=== PATIENT | male | born 1940 | race Caucasian/White ===

== ENCOUNTER 2018-02-13 18:41 | Inpatient (IN) | payer OTHER, MEDICARE ==
[2018-02-13 18:45] VITALS: BP 185/96; PULSE 68; RESP 24; TEMP 99.1; O2SAT 94
--- NOTE | 2018-02-13 19:42 | RADRPT ---
EXAM DATE/TIME: 02/13/2018 19:02 [place] COMPARISON: No previous studies available for comparison. INDICATIONS : Short of breath. MEDICAL HISTORY : None. SURGICAL HISTORY : None. ENCOUNTER: Initial ACUITY: 1 day PAIN SCORE: 0/10 LOCATION: Bilateral chest FINDINGS: PA and lateral views of the chest demonstrate the lungs to be symmetrically aerated without evidence of mass, infiltrate or effusion. The cardiomediastinal contours are unremarkable. Osseous structure s are intact. CONCLUSION: 1. No acute findings. Duane Mendez MD on February 13, 2018 at 19:40 Board Certified Radiologist. This report was verified electronically.
[2018-02-13 19:44] VITALS: BP 143/71; PULSE 77; RESP 28; O2SAT 88; O2SAT 96
[2018-02-13] MEDS ORDERED: GEMF600T PO (19:53)
[2018-02-13] MEDS ORDERED: LISI-519 PO (19:53)
[2018-02-13] MEDS ORDERED: TAMS0.4C4 (19:53)
[2018-02-13] MEDS ORDERED: ASPIRIN 325 MG TAB PO ONE (20:00)
[2018-02-13] MEDS ORDERED: NITROGLYCERIN 2% OINT 1 GM PACKET TOPICAL ONE (20:00)
[2018-02-13 20:21] LABS: AUTOMATED NEUTROPHIL # 3.9 TH/MM3 (1.8-7.7); BASOPHIL % 0.4 % (0.0-2.0); EOSINOPHIL # 0.1 TH/MM3 (0-0.4); EOSINOPHIL % 2.1 % (0.0-4.0); HEMATOCRIT 42.6 % (39.0-51.0); HEMOGLOBIN 14.5 GM/DL (13.0-17.0); LYMPH % 24.8 % (9.0-44.0); LYMPHOCYTE # 1.5 TH/MM3 (1.0-4.8); MEAN CELL VOLUME 94.8 FL (80.0-100.0); MEAN CORPUSCULAR HEMOGLOBIN 32.2 PG (27.0-34.0); MEAN PLATELET VOLUME 7.9 FL (7.0-11.0); MONOCYTE # 0.6 TH/MM3 (0-0.9); NEUT % 62.7 % (16.0-70.0); PLATELET COUNT 258 TH/MM3 (150-450); RED BLOOD COUNT 4.49 MIL/MM3 (4.50-5.90); RED CELL DISTRIBUTION WIDTH 13.8 % (11.6-17.2); WHITE BLOOD COUNT 6.2 TH/MM3 (4.0-11.0)
[2018-02-13 20:36] LABS: INTERNATIONAL NORMALIZED RATIO 1.2 RATIO; PROTHROMBIN TIME - PATIENT 12.2 SEC (9.8-11.6)
--- NOTE | 2018-02-13 20:42 | PD ---
HPI Chief Complaint: Respiratory Symptoms Time Seen by Provider: 19:40 Travel History International Travel<30 days: No Contact w/Intl Traveler<30days: No Traveled to known affect area: No History of Present Illness HPI 77-year-old male that presents to the ED for evaluation of shortness of breath with exertion. Per patient he is never had this before. Per patient his been becoming worse for the past 2 weeks. No pain of pressure. Sitting or laying down does not make a difference in his symptoms. Only happens when he walks for long distance. He went to see his primary care doctor recommended he comes here. He has no history of heart disease or stones. Family history of heart disease. No history of smoking ever. No substance abuse. He does have a history of high triglycerides as well as high blood pressure. Denies any pain or pressure on his chest. Has no taken anything for this. Did not took an aspirin today. Per patient he thought he might be related to his medications and he stopped taking about 2 days ago but the symptoms have not improved. Currently he is symptomatic and only when he ambulates does he get symptoms. Patient denies any history of blood clots or any history of recent travel in the past 3 months. No recent surgeries. PFSH Past Medical History High Cholesterol: Yes Diabetes: No Diminished Hearing: No Hypertension: Yes Tetanus Vaccination: Unknown Influenza Vaccination: No Social History Alcohol Use: Yes (every day a couple of beers) Tobacco Use: No Substance Use: No Allergies-Medications (Allergen,Severity, Reaction): Coded Allergies: atorvastatin (Verified Allergy, Unknown, 02/13/18) Reported Meds & Prescriptions Reported Meds & Active Scripts Active Reported Lisinopril 5 Mg Tab 5 Mg PO DAILY Tamsulosin (Tamsulosin HCl) 0.4 Mg Cap 0.4 Mg HS Gemfibrozil 600 Mg Tab 600 Mg PO BIDAC Take 30 minutes prior to breakfast and dinner. Review of Systems Except as stated in HPI: all other systems reviewed are Neg Physical Exam Narrative GENERAL: SKIN: Warm and dry. HEAD: Atraumatic. Normocephalic. EYES: Pupils equal and round. No scleral icterus. No injection or drainage. ENT: No nasal bleeding or discharge. Mucous membranes pink and moist. Tongue is midline. No uvula deviation. NECK: Trachea midline. No JVD. CARDIOVASCULAR: Regular rate and rhythm. No murmurs, S3, S4. RESPIRATORY: No accessory muscle use. Clear to auscultation. Breath sounds equal bilaterally. GASTROINTESTINAL: Abdomen soft, non-tender, nondistended. Hepatic and splenic margins not palpable. MUSCULOSKELETAL: Extremities without clubbing, cyanosis, or edema. No obvious deformities. Full range of motion of the upper and lower extremities bilaterally. 2+ pulses bilaterally. NEUROLOGICAL: Awake and alert. No obvious cranial nerve deficits. Motor grossly within normal limits. Five out of 5 muscle strength in the arms and legs. Normal speech. PSYCHIATRIC: Appropriate mood and affect; insight and judgment normal. Data Data Last Documented VS Vital Signs Date Time Temp Pulse Resp B/P (MAP) Pulse Ox O2 Delivery O2 Flow Rate FiO2 02/13/18 19:45 22 97 Nasal Cannula 2.50 02/13/18 19:44 77 143/71 (95) 02/13/18 18:45 99.1 Orders Orders Complete Blood Count With Diff (02/13/18 18:48) Comprehensive Metabolic Panel (02/13/18 18:48) B-Type Natriuretic Peptide (02/13/18 18:48) Act Partial Throm Time (Ptt) (02/13/18 18:48) Prothrombin Time / Inr (Pt) (02/13/18 18:48) Magnesium (Mg) (02/13/18 18:48) Ckmb (Isoenzyme) Profile (02/13/18 18:48) Electrocardiogram (02/13/18 18:48) Chest, Pa & Lat (02/13/18 18:48) Aspirin (Aspirin) (02/13/18 20:00) Nitroglycerin 2% Oint (Nitroglycerin 2% (02/13/18 20:00) Troponin I (02/13/18 21:00) CKMB (02/13/18 19:20) CKMB% (02/13/18 19:20) Admit Order (Ed Use Only) (02/13/18 22:04) Labs Laboratory Tests Test 02/13/18 19:20 White Blood Count 6.2 TH/MM3 Red Blood Count 4.49 MIL/MM3 Hemoglobin 14.5 GM/DL Hematocrit 42.6 % Mean Corpuscular Volume 94.8 FL Mean Corpuscular Hemoglobin 32.2 PG Mean Corpuscular Hemoglobin Concent 34.0 % Red Cell Distribution Width 13.8 % Platelet Count 258 TH/MM3 Mean Platelet Volume 7.9 FL Neutrophils (%) (Auto) 62.7 % Lymphocytes (%) (Auto) 24.8 % Monocytes (%) (Auto) 10.0 % Eosinophils (%) (Auto) 2.1 % Basophils (%) (Auto) 0.4 % Neutrophils # (Auto) 3.9 TH/MM3 Lymphocytes # (Auto) 1.5 TH/MM3 Monocytes # (Auto) 0.6 TH/MM3 Eosinophils # (Auto) 0.1 TH/MM3 Basophils # (Auto) 0.0 TH/MM3 CBC Comment DIFF FINAL Differential Comment Prothrombin Time 12.2 SEC Prothromb Time International Ratio 1.2 RATIO Activated Partial Thromboplast Time 27.1 SEC Blood Urea Nitrogen 21 MG/DL Creatinine 1.43 MG/DL Random Glucose 92 MG/DL Total Protein 8.1 GM/DL Albumin 3.6 GM/DL Calcium Level 9.3 MG/DL Magnesium Level 2.2 MG/DL Alkaline Phosphatase 87 U/L Aspartate Amino Transf (AST/SGOT) 37 U/L Alanine Aminotransferase (ALT/SGPT) 28 U/L Total Bilirubin 0.4 MG/DL Sodium Level 141 MEQ/L Potassium Level 4.0 MEQ/L Chloride Level 110 MEQ/L Carbon Dioxide Level 18.3 MEQ/L Anion Gap 13 MEQ/L Estimat Glomerular Filtration Rate 48 ML/MIN Total Creatine Kinase 132 U/L Creatine Kinase MB 3.4 NG/ML Troponin I 0.07 NG/ML B-Type Natriuretic Peptide 78 PG/ML MDM Medical Decision Making Medical Screen Exam Complete: Yes Emergency Medical Condition: Yes Medical Record Reviewed: Yes Interpretation(s) EKG shows sinus rhythm with no sign of acute ischemia read by me and attending. Patient does appear to have some ST depressions in V3 CBC & BMP Diagram 02/13/18 19:20 Total Protein 8.1, Albumin 3.6, Calcium Level 9.3, Magnesium Level 2.2, Alkaline Phosphatase 87, Aspartate Amino Transf (AST/SGOT) 37, Alanine Aminotransferase (ALT/SGPT) 28, Total Bilirubin 0.4 Last Impressions Chest X-Ray 02/13/18 0733 Signed Impressions: Service Date/Time: Tuesday, February 13, 2018 19:02 - CONCLUSION: 1. No acute findings. Duane Mendez MD troponin of 0.07 CKMB negative Differential Diagnosis Angina versus atypical angina versus shortness of breath with exertion versus CHF versus n STEMI Narrative Course 77-year-old male that presents to the ED for evaluation of shortness of breath with exertion. Patient was properly examined and was found to have signs and symptoms very concerning for anginal equivalent. Patient does not have any history of this in the past. He does have risk factors including high cholesterol and high triglycerides as well as age, gender as well as high blood pressure. At this time EKG did not show any sign of ST elevation or ischemia. Recommendation at this time is for cardiac workup and likely admission to the chest pain center if everything come back negative. Patient agrees. Patient was given nitroglycerin paste and given aspirin. Patient and family agree with plan. Labs and imaging showed positive troponin. Likely NSTEMI, symptoms started 2 weeks ago, question whether this is trending down or up. Case discussed with Dr Rivera who recommends admission for further eval and treatment. Dr Sam agrees to admission and will start him on Heparin. Diagnosis Primary Impression: NSTEMI (non-ST elevated myocardial infarction) Admitting Information Admitting Physician Requests: Admit Renan Harman Feb 13, 2018 20:42
--- NOTE | 2018-02-13 20:47 | PD ---
Physical Exam Narrative General: The patient is a well-developed well-nourished male in no acute distress. Head and Neck exam: Head is normocephalic atraumatic. Eyes: EOMI, pupils are equal round and reactive to light. Nose: Midline septum with pink mucous membranes Mouth: Dentition unremarkable. Moist mucus membranes. Posterior oropharynx is not erythematous. No tonsillar hypertrophy. Uvula midline. Airway patent. Neck: No palpable lymphadenopathy. No nuchal rigidity. No thyromegaly. Cardiovascular: Regular rate and rhythm without murmurs, gallops, or rubs. No pulse deficit to the extremities on simultaneous auscultation and palpation of his radial artery. Lungs: Clear to auscultation bilaterally. No wheezes, rhonchi, or rales. Abdomen: Soft, without tenderness to palpation in all 4 quadrants of the abdomen. No guarding, rebound, or rigidity. Normal bowel sounds are audible. No tenderness on palpation of McBurney's point. Extremities: No clubbing or cyanosis. The patient has trace pedal edema bilateral lower extremities. 2+ pulses in all 4 extremities. The patient denies any calf tenderness on palpation. Back: No spinous process tenderness to palpation. No costovertebral angle tenderness to palpation. Neurologic Exam: Grossly nonfocal. Skin Exam: No rash noted. Intact skin that is warm and dry. Data Data Last Documented VS Vital Signs Date Time Temp Pulse Resp B/P (MAP) Pulse Ox O2 Delivery O2 Flow Rate FiO2 02/13/18 19:45 22 97 Nasal Cannula 2.50 02/13/18 19:44 77 143/71 (95) 02/13/18 18:45 99.1 Orders Orders Complete Blood Count With Diff (02/13/18 18:48) Comprehensive Metabolic Panel (02/13/18 18:48) B-Type Natriuretic Peptide (02/13/18 18:48) Act Partial Throm Time (Ptt) (02/13/18 18:48) Prothrombin Time / Inr (Pt) (02/13/18 18:48) Magnesium (Mg) (02/13/18 18:48) Ckmb (Isoenzyme) Profile (02/13/18 18:48) Electrocardiogram (02/13/18 18:48) Chest, Pa & Lat (02/13/18 18:48) Aspirin (Aspirin) (02/13/18 20:00) Nitroglycerin 2% Oint (Nitroglycerin 2% (02/13/18 20:00) Troponin I (02/13/18 21:00) CKMB (02/13/18 19:20) CKMB% (02/13/18 19:20) Labs Laboratory Tests Test 02/13/18 19:20 White Blood Count 6.2 TH/MM3 Red Blood Count 4.49 MIL/MM3 Hemoglobin 14.5 GM/DL Hematocrit 42.6 % Mean Corpuscular Volume 94.8 FL Mean Corpuscular Hemoglobin 32.2 PG Mean Corpuscular Hemoglobin Concent 34.0 % Red Cell Distribution Width 13.8 % Platelet Count 258 TH/MM3 Mean Platelet Volume 7.9 FL Neutrophils (%) (Auto) 62.7 % Lymphocytes (%) (Auto) 24.8 % Monocytes (%) (Auto) 10.0 % Eosinophils (%) (Auto) 2.1 % Basophils (%) (Auto) 0.4 % Neutrophils # (Auto) 3.9 TH/MM3 Lymphocytes # (Auto) 1.5 TH/MM3 Monocytes # (Auto) 0.6 TH/MM3 Eosinophils # (Auto) 0.1 TH/MM3 Basophils # (Auto) 0.0 TH/MM3 CBC Comment DIFF FINAL Differential Comment Prothrombin Time 12.2 SEC Prothromb Time International Ratio 1.2 RATIO Activated Partial Thromboplast Time 27.1 SEC Blood Urea Nitrogen 21 MG/DL Creatinine 1.43 MG/DL Random Glucose 92 MG/DL Total Protein 8.1 GM/DL Albumin 3.6 GM/DL Calcium Level 9.3 MG/DL Magnesium Level 2.2 MG/DL Alkaline Phosphatase 87 U/L Aspartate Amino Transf (AST/SGOT) 37 U/L Alanine Aminotransferase (ALT/SGPT) 28 U/L Total Bilirubin 0.4 MG/DL Sodium Level 141 MEQ/L Potassium Level 4.0 MEQ/L Chloride Level 110 MEQ/L Carbon Dioxide Level 18.3 MEQ/L Anion Gap 13 MEQ/L Estimat Glomerular Filtration Rate 48 ML/MIN Total Creatine Kinase 132 U/L Creatine Kinase MB 3.4 NG/ML Troponin I 0.07 NG/ML B-Type Natriuretic Peptide 78 PG/ML [facility] Medical Record Reviewed: Yes Supervised Visit with HILL: Yes Narrative Course I, Dr. Rivera, have reviewed the advance practice practitioner's documentation and am in agreement, met with the patient face to face, made the diagnosis, and the medical decision making was done by me. The patient was initially evaluated by Herrera, physician housekeeping assistant. Please see their complete history and physical. *My assessment and Findings: The patient presents with a history of 2 weeks of dyspnea on exertion that is gradually been worsening with time and became much worse 2 days ago. He denies having any chest pain or chest pressure associated with this. He denies having any diaphoresis, nausea, or recent cough. He reports that he has had some nasal congestion which he attributes to seasonal allergies. He denies having any prior history of coronary artery disease. He cannot recall ever having a stress test done previously. He does however have a history of hypertension and hyperlipidemia. He denies any prior history of smoking. He denies any prior history of DVT or PE. He denies any known family history of blood clots. The patient does report having some ankle edema recently noted. During the course of the patient's emergency department visit, the patient's history, examination, and differential diagnosis were reviewed with the patient. The patient was placed on a clinical research monitor with oximetry and frequent blood pressure monitoring. The patient had IV access obtained and blood work sent for analysis. The patient had an EKG done on arrival that shows a sinus rhythm heart rate is 75, QRS duration 140 ms which is prolonged, QTC 445 ms with what appears to be a right bundle branch block, T waves inverted in V1, V2 , V3, lead III, aVF. No acute ST segment elevation. The patient was initially provided aspirin, nitroglycerin 1 inch to the chest wall as this is suspected to be an anginal equivalent. The patient's laboratory studies were reviewed and remarkable for a white count of 6.2, hemoglobin 14.5, platelets 258 with monocytes 10, CMP is remarkable for chloride of 110, CO2 18.3, BUN 21, creatinine 1.43, cardiac enzymes within normal limits, BNP is 78, troponin I is elevated at 0.07. PT 12.2, PTT 27.1 Radiology studies were reviewed and remarkable for a chest x-ray that shows no acute abnormality. The patient's results were discussed with the patient, including the plan of care. I explained that further testing and/ or monitoring is indicated based on the patient's history, examination, and/ or laboratory findings. Therefore, I recommended admission for additional evaluation. The patient expressed understanding and was agreeable with this plan. The patient was admitted to the hospital in guarded condition and sent to a bed under the care of the [facility] service. Diagnosis Primary Impression: Dyspnea on exertion Admitting Information Admitting Physician Requests: Observation Margaret Rivera MD Feb 13, 2018 20:46
[2018-02-13 20:59] LABS: ALBUMIN 3.6 GM/DL (3.4-5.0); AST (GOT) 37 U/L (15-37); BICARBONATE 18.3 MEQ/L (21.0-32.0); BLOOD UREA NITROGEN 21 MG/DL (7-18); CALCIUM 9.3 MG/DL (8.5-10.1); CHLORIDE 110 MEQ/L (98-107); CREATININE 1.43 MG/DL (0.60-1.30); GLOMERULAR FILTRATION RATE 48 ML/MIN (>89); GLUCOSE,RANDOM 92 MG/DL (74-106); MAGNESIUM 2.2 MG/DL (1.5-2.5); SODIUM (NA) 141 MEQ/L (136-145)
[2018-02-13 21:02] LABS: ALKALINE PHOSPHATASE 87 U/L (45-117); ALT (GPT) 28 U/L (12-78); TOTAL BILIRUBIN ADULT 0.4 MG/DL (0.2-1.0); TOTAL PROTEIN 8.1 GM/DL (6.4-8.2)
[2018-02-13] MEDS ORDERED: HEPARIN SODIUM - IV 10,000 UNITS/10 ML VIAL IV PUSH ONE (22:15)
[2018-02-13] MEDS ORDERED: SODIUM CHLORIDE 0.9% FLUSH 10 ML FLUSH IV FLUSH PRN (22:30)
[2018-02-13] MEDS ORDERED: NALOXONE HCL 0.4 MG/ML AMP IV PUSH PRN (22:30)
[2018-02-13] MEDS ORDERED: NITROGLYCERIN 0.4 MG SL 25 TABS/BTL SL PRN (22:30)
[2018-02-13 23:07] VITALS: BP 128/59; PULSE 71; RESP 17; O2SAT 96
[2018-02-13] MEDS: HEPARIN-D5W 25,000 U/250 ML 250 ML IV PRN (23:12)
[2018-02-14 02:55] LABS: TROPONIN I 0.07 NG/ML (0.02-0.05)
[2018-02-14] MEDS ORDERED: HEPARIN SODIUM - IV 10,000 UNITS/10 ML VIAL IV PUSH PRN ×2 (04:15)
--- NOTE | 2018-02-14 04:42 | HHI.HP ---
HPI [facility] Physician Chuck Watts MD Admission Diagnosis NSTEMI, positive troponin Diagnoses: (1) NSTEMI (non-ST elevated myocardial infarction) (2) Dyspnea on exertion Chief Complaint: SOB with exertyion Travel History International Travel<30 Days: No Contact w/Intl Traveler <30 Da: No Traveled to Known Affected Are: No History of Present Illness Mr. Whitaker is a 77-year-old male with a past medical history of hypertension and hypertriglyceridemia as well as a family history of heart disease who presented to the emergency room complaining of 2 weeks of progressively worsening shortness of breath with exertion. The patient was found to have troponin elevation in the emergency room and symptoms were thought to be a possible anginal equivalent. The patient has been admitted to the hospitalist service with cardiology consultation. The patient is seen in the ER overflow area. He reports having no stamina, fatigue, and shortness of breath that has worsened over the past 2 weeks. He says over the past 3 days, the shortness of breath has gotten so bad that he is unable to ambulate further than 20 feet without becoming short of breath. He states that he has not had any accompanying chest pain, palpitations, nausea, or diaphoresis. He denies any recent cough or fevers. He has never smoked. Review of Systems Except as stated in HPI: all other systems reviewed are Neg Past Family Social History Past Medical History Hypertriglyceridemia Hypertension Denies diabetes mellitus, heart disease, congestive heart failure, irregular heart rhythm, DVT, CVA, PE, seizures, cancer, thyroid problems, liver problems, or kidney problems Past Surgical History Had surgery on 1 of his fingers but other than that has had no prior surgical history . Reported Medications Reported Meds & Active Scripts Active Reported Lisinopril 5 Mg Tab 5 Mg PO DAILY Tamsulosin (Tamsulosin HCl) 0.4 Mg Cap 0.4 Mg HS Gemfibrozil 600 Mg Tab 600 Mg PO BIDAC Take 30 minutes prior to breakfast and dinner. . Allergies: Coded Allergies: atorvastatin (Verified Allergy, Unknown, 02/13/18) Family History Father from [place] at age 8383 years old . Social History Tobacco: Denies smoking ever Alcohol: Drinks 2-4 beers about 3-4 days per week Illicit Drugs: Denies . Physical Exam Vital Signs Vital Signs Date Time Temp Pulse Resp B/P (MAP) Pulse Ox O2 Delivery O2 Flow Rate FiO2 02/13/18 23:07 71 17 128/59 (82) 96 Nasal Cannula 3.00 02/13/18 19:45 22 97 Nasal Cannula 2.50 02/13/18 19:44 88 Room Air 02/13/18 19:44 77 28 143/71 (95) 96 Nasal Cannula 3.00 02/13/18 18:45 99.1 68 24 185/96 (125) 94 Physical Exam GENERAL: This is a well-nourished, well-developed patient, in no apparent distress. SKIN: No rashes. Cool and dry. HEAD: Atraumatic. Normocephalic. EYES: No scleral icterus. No injection or drainage. ENT: Nose without bleeding, purulent drainage. NECK: Trachea midline. No JVD or lymphadenopathy. CARDIOVASCULAR: Regular rate and rhythm without murmurs, gallops, or rubs. 1+ ankle edema bilaterally. RESPIRATORY: Clear to auscultation. Breath sounds equal bilaterally. No wheezes , rales, or rhonchi. GASTROINTESTINAL: Abdomen soft, non-tender, nondistended. No guarding. MUSCULOSKELETAL: Extremities without clubbing, cyanosis, or edema. No calf tenderness. NEUROLOGICAL: Awake and alert. Motor and sensory grossly within normal limits. Normal speech. . Laboratory Laboratory Tests Test 02/13/18 19:20 02/14/18 02:05 White Blood Count 6.2 Red Blood Count 4.49 Hemoglobin 14.5 Hematocrit 42.6 Mean Corpuscular Volume 94.8 Mean Corpuscular Hemoglobin 32.2 Mean Corpuscular Hemoglobin Concent 34.0 Red Cell Distribution Width 13.8 Platelet Count 258 Mean Platelet Volume 7.9 Neutrophils (%) (Auto) 62.7 Lymphocytes (%) (Auto) 24.8 Monocytes (%) (Auto) 10.0 Eosinophils (%) (Auto) 2.1 Basophils (%) (Auto) 0.4 Neutrophils # (Auto) 3.9 Lymphocytes # (Auto) 1.5 Monocytes # (Auto) 0.6 Eosinophils # (Auto) 0.1 Basophils # (Auto) 0.0 CBC Comment DIFF FINAL Differential Comment Prothrombin Time 12.2 Prothromb Time International Ratio 1.2 Activated Partial Thromboplast Time 27.1 Blood Urea Nitrogen 21 Creatinine 1.43 Random Glucose 92 Total Protein 8.1 Albumin 3.6 Calcium Level 9.3 Magnesium Level 2.2 Alkaline Phosphatase 87 Aspartate Amino Transf (AST/SGOT) 37 Alanine Aminotransferase (ALT/SGPT) 28 Total Bilirubin 0.4 Sodium Level 141 Potassium Level 4.0 Chloride Level 110 Carbon Dioxide Level 18.3 Anion Gap 13 Estimat Glomerular Filtration Rate 48 Total Creatine Kinase 132 122 Creatine Kinase MB 3.4 Troponin I 0.07 0.07 B-Type Natriuretic Peptide 78 Result Diagram: 02/13/18191902/13/181919 Imaging Last Impressions Chest X-Ray 02/13/181847 Signed Impressions: Service Date/Time: Tuesday, February 13, 2018 19:02 - CONCLUSION: 1. No acute findings. MD Pedro West VTE Risk Assessment Caprini VTE Risk Assessment: Mod/High Risk (score >= 2) Caprini Risk Assessment Model Point Value = 1 Point Value = 2 Point Value = 3 Point Value = 5 Age 41-60 Minor surgery BMI > 25 kg/m2 Swollen legs Varicose veins or History of unexplained or recurrent spontaneous Oral contraceptives or hormone replacement Sepsis (< 1 month) Serious lung disease, including pneumonia (< 1 month) Abnormal pulmonary function Acute myocardial infarction Congestive heart failure (< 1 month) History of inflammatory bowel disease Medical patient at bed rest Age 61-74 Arthroscopic surgery Major open surgery (> 45 min) Laparoscopic surgery (> 45 min) Malignancy Confined to bed (> 72 hours) Immobilizing plaster cast Central venous access Age >= 75 History of VTE Family history of VTE Factor V Leiden Prothrombin [id number] Lupus anticoagulant Anticardiolipin antibodies Elevated serum homocysteine Heparin-induced thrombocytopenia Other congenital or acquired thrombophilia Stroke (< 1 month) Elective arthroplasty Hip, pelvis, or leg fracture Acute spinal cord injury (< 1 month) Prophylaxis Regimen Total Risk Factor Score Risk Level Prophylaxis Regimen 0-1 Low Early ambulation 2 Moderate Order ONE of the following: *Sequential Compression Device (SCD) *Heparin 5000 units SQ BID 3-4 Higher Order ONE of the following medications: *Heparin 5000 units SQ TID *Enoxaparin/Lovenox 40 mg SQ daily (WT < 150 kg, CrCl > 30 mL/min) *Enoxaparin/Lovenox 30 mg SQ daily (WT < 150 kg, CrCl > 10-29 mL/min) *Enoxaparin/Lovenox 30 mg SQ BID (WT < 150 kg, CrCl > 30 mL/min) AND/OR *Sequential Compression Device (SCD) 5 or more Highest Order ONE of the following medications: *Heparin 5000 units SQ TID (Preferred with Epidurals) *Enoxaparin/Lovenox 40 mg SQ daily (WT < 150 kg, CrCl > 30 mL/min) *Enoxaparin/Lovenox 30 mg SQ daily (WT < 150 kg, CrCl > 10-29 mL/min) *Enoxaparin/Lovenox 30 mg SQ BID (WT < 150 kg, CrCl > 30 mL/min) AND *Sequential Compression Device (SCD) Assessment and Plan Assessment and Plan Mr. Whitaker is a 77-year-old male with a past medical history of hypertension and hypertriglyceridemia as well as a family history of heart disease who presented to the emergency room complaining of 2 weeks of progressively worsening shortness of breath with exertion. The patient was found to have troponin elevation in the emergency room and symptoms were thought to be a possible anginal equivalent. The patient has been admitted to the hospitalist service with cardiology consultation. NSTEMI SOB with exertion -suspect anginal equivalent -Chest x-ray with no acute findings -Continue to monitor and trend serial EKGs and troponin I measurements -EKGs with nonspecific ST changes in V3 and minimal depression in V4 -Cardiology consultation -Nitroglycerin 0.4 mg sublingual every 5 minutes as needed for chest pain -Heparin drip for anticoagulation -Continuous cardiac telemetry to monitor for arrhythmia -NPO for possible heart catheterization -Aspirin 325 mg a day p.o. -will obtain d-dimer - concern for contrast in patient with RHEA and possible need for cardiac cath Acute kidney injury -likely secondary to dehydration -BUN 21, creatinine 1.43, estimated GFR 48 -IV fluid hydration with lactated Ringer's at 84 cc/h -Avoid nephrotoxins as much as possible -Recheck renal functions and monitor trends -Consider renal ultrasound if renal function does not improve Hypertension Hypertriglyceridemia -Continue home meds and monitor blood pressure readings and adjust treatments as indicated Patient verbalizing anxiety and requesting medication to manage -Alprazolam 0.125 mg p.o. 1 dose DVT prophylaxis - on heparin drip Discussed Condition With Patient, RN, and Dr. Pat . Physician Certification 2 Midnight Certification Type: Admission for Inpatient Services Order for Inpatient Services The services are ordered in accordance with Medicare regulations or non- Medicare payer requirements, as applicable. In the case of services not specified as inpatient-only, they are appropriately provided as inpatient services in accordance with the 2-midnight benchmark. Estimated LOS (days): 3 days is the estimated time the patient will need to remain in the hospital, assuming treatment plan goals are met and no additional complications. Post-Hospital Plan: Home Radha Diana Feb 14, 2018 04:42
[2018-02-14] MEDS ORDERED: ALPRAZolam 0.25 MG TAB PO ONE (05:00)
[2018-02-14] MEDS: LACTATED RINGER'S 1000 ML INJ 1,000 ML IV SCH ×2 (05:45→17:40)
--- NOTE | 2018-02-14 08:44 | MB ---
cc: Nicola Wolfe MD DATE: 02/14/2018 INDICATION: Shortness of breath. HISTORY OF PRESENT ILLNESS: This is a 77-year-old gentleman with a history of hypertension and hyperglycemic who presents with progressive shortness of breath over the last 2 weeks, but more progressive within the last 3 days. Denies any chest pain. States that symptoms have gotten so bad that he is only able to ambulate about 20 feet before he becomes very symptomatic. No recent fever or productive cough. Troponin was in the intermediate range. Electrocardiogram shows incomplete right bundle branch block with some abnormal ST-T wave changes in the anterolateral precordial leads. PAST MEDICAL HISTORY: Hypertriglyceridemia, hypertension. PAST SURGICAL HISTORY: Finger surgery reported. MEDICATIONS: Lisinopril, Tamsulosin, gemfibrozil. ALLERGIES: ATORVASTATIN. FAMILY HISTORY: Denies any family history of early coronary disease or sudden cardiac . SOCIAL HISTORY: Denies tobacco use. Drinks about 2-4 beers about 3-4 times a week. Denies any drug use. REVIEW OF SYSTEMS: A 12-point review of systems was performed, negative unless otherwise as noted in the history of present illness. PHYSICAL EXAM: VITAL SIGNS: Temperature 99, pulse 71, blood pressure 128/59 mmHg. GENERAL: Alert and oriented x 3 in no acute distress. HEENT: Exam shows pupils are reactive to light and accommodation. Extraocular movements are intact. NECK: No elevation or jugular venous distention. No thyromegaly. No lymphadenopathy, no carotid bruits. LUNGS: Clear to auscultation bilaterally with some diffuse rhonchi. CARDIOVASCULAR: Regular rate and rhythm without murmurs, rubs or gallops. ABDOMEN: Nontender, nondistended. Equal bowel sounds. No hepatosplenomegaly. EXTREMITIES: Show no clubbing, cyanosis or edema. Good peripheral pulses. NEUROLOGIC: Cranial nerves intact. Motor and sensory grossly intact. LABORATORY DATA: Sodium 141, potassium 4.0, BUN is 21, creatinine is 1.43. Troponin 0.07 and 0.07. INR is 1.2. WBC 6.2, hemoglobin 14.5, platelet count is 258. Electrocardiogram as mentioned earlier, incomplete right bundle branch block with mild ST depression and T-wave inversions in the early precordial leads. ASSESSMENT AND PLAN: 1. Shortness of breath. 2. Abnormal electrocardiogram, hypertension, and hypertriglyceridemia. PLAN: The patient actually does not have chest pain symptoms. Troponin is in the intermediate range. His most pronounced symptom is shortness of breath. No recent long travel. No sedentary lifestyle. His respiratory exam does have some rhonchi, but chest x-ray did not show any obvious signs of pneumonia. I would like to proceed first with a pulmonary embolism workup just to make sure that is not his underlying etiology. With his creatinine mildly elevated, we will pursue a ventilation perfusion scan first. We can gently hydrate him. If that comes back negative, we may have to then consider whether we would do a stress test, which would require a 24-hour delay or just proceed directly with cardiac catheterization. We will get a 2-D echocardiogram. Nicola Wolfe MD INGE/DL , 08:22 AM , 08:43 AM
[2018-02-14] MEDS: SODIUM CHLORIDE 0.9% FLUSH 10 ML FLUSH IV FLUSH SCH ×2 (09:00→22:41)
[2018-02-14] MEDS: ASPIRIN EC 325 MG TABEC PO SCH (09:38)
[2018-02-14] MEDS: GEMFIBROZIL 600 MG TAB PO SCH ×2 (09:38→18:00)
[2018-02-14] MEDS: LISINOPRIL 5 MG TAB PO SCH (09:39)
--- NOTE | 2018-02-14 12:10 | RADRPT ---
EXAM DATE/TIME: 02/14/2018 11:21 [facility] COMPARISON: CHEST PA & LAT, February 13, 2018, 19:02. INDICATIONS : Dyspnea x 2 weeks. DOSE: 1.2 mCi Tc99m DTPA 8.8 mCi Tc99m MAA MEDICAL HISTORY : Hypertension. SURGICAL HISTORY : Finger. ENCOUNTER: [facility] ACUITY: 2 weeks PAIN SCALE: 0/10 LOCATION: Bilateral chest TECHNIQUE: Following five minutes of tidal breathing of DTPA aerosol, planar images of the lungs were performed in eight projections. The patient was then injected with MAA, and eight-view perfusion scan was perf ormed. FINDINGS: There is a homogeneous pattern of aerosol delivery to the periphery of both lungs. No focal ventilat ory defects are seen. The perfusion lung scan demonstrates a single well-defined segmental defect involving the left upper lung. This is a mismatched defect compared to the ventilation scan. The rest of the perfusion scan is unremarkable. The recent chest x-ray is unremarkable with no focal infiltrates in the right or left upper lung campbell. CONCLUSION: There is a single well-defined segmental mismatched defect involving the left upper lung. This would be high probability for PE. Israel Reid MD on February 14, 2018 at 12:06 Board Certified Radiologist. This report was verified electronically.
[2018-02-14 13:13] VITALS: BP 168/82; PULSE 62; RESP 19; TEMP 97.9; O2SAT 95
--- NOTE | 2018-02-14 13:28 | PD.CARD.PN ---
Objective Medications Current Medications Medications (Trade) Dose Ordered Sig/Yoan Route Start Time Stop Time Status Last Admin (Heparin Inj) 5,000 units UNSCH PRN IV PUSH 02/14/18 04:15 (Heparin Inj) 2,500 units UNSCH PRN IV PUSH 02/14/18 04:15 Heparin Sodium/ Dextrose 250 ml @ 10 mls/hr TITRATE PRN IV 02/13/18 22:15 02/13/18 23:12 (NS Flush) 2 ml UNSCH PRN IV FLUSH 02/13/18 22:30 (NS Flush) 2 ml BID IV FLUSH 02/14/18 09:00 (Narcan Inj) 0.4 mg UNSCH PRN IV PUSH 02/13/18 22:30 (Ecotrin Ec) 325 mg DAILY PO 02/14/18 09:00 02/14/18 09:38 (Nitrostat Sl) 0.4 mg Q5M PRN SL 02/13/18 22:30 (Lopid) 600 mg BIDAC PO 02/14/18 07:00 02/14/18 09:38 (Prinivil) 5 mg DAILY PO 02/14/18 09:00 02/14/18 09:39 (Flomax) 0.4 mg HS PO 02/14/18 21:00 Lactated Ringer's 1,000 ml @ 84 mls/hr [id number] IV 02/14/18 05:45 Vital Signs / I&O Vital Signs Date Time Temp Pulse Resp B/P (MAP) Pulse Ox O2 Delivery O2 Flow Rate FiO2 02/14/18 13:13 97.9 62 19 168/82 (110) 95 02/13/18 23:07 71 17 128/59 (82) 96 Nasal Cannula 3.00 02/13/18 19:45 22 97 Nasal Cannula 2.50 02/13/18 19:44 88 Room Air 02/13/18 19:44 77 28 143/71 (95) 96 Nasal Cannula 3.00 02/13/18 18:45 99.1 68 24 185/96 (125) 94 I/O 02/13/18 02/13/18 02/13/18 02/14/18 02/14/18 02/14/18 07:00 15:00 23:00 07:00 15:00 23:00 Output Total 400 ml Balance -400 ml Output Urine Total 400 ml Laboratory Laboratory Tests Test 02/13/18 19:20 02/14/18 02:05 White Blood Count 6.2 TH/MM3 Red Blood Count 4.49 MIL/MM3 Hemoglobin 14.5 GM/DL Hematocrit 42.6 % Mean Corpuscular Volume 94.8 FL Mean Corpuscular Hemoglobin 32.2 PG Mean Corpuscular Hemoglobin Concent 34.0 % Red Cell Distribution Width 13.8 % Platelet Count 258 TH/MM3 Mean Platelet Volume 7.9 FL Neutrophils (%) (Auto) 62.7 % Lymphocytes (%) (Auto) 24.8 % Monocytes (%) (Auto) 10.0 % Eosinophils (%) (Auto) 2.1 % Basophils (%) (Auto) 0.4 % Neutrophils # (Auto) 3.9 TH/MM3 Lymphocytes # (Auto) 1.5 TH/MM3 Monocytes # (Auto) 0.6 TH/MM3 Eosinophils # (Auto) 0.1 TH/MM3 Basophils # (Auto) 0.0 TH/MM3 CBC Comment DIFF FINAL Differential Comment Prothrombin Time 12.2 SEC Prothromb Time International Ratio 1.2 RATIO Activated Partial Thromboplast Time 27.1 SEC Blood Urea Nitrogen 21 MG/DL Creatinine 1.43 MG/DL Random Glucose 92 MG/DL Total Protein 8.1 GM/DL Albumin 3.6 GM/DL Calcium Level 9.3 MG/DL Magnesium Level 2.2 MG/DL Alkaline Phosphatase 87 U/L Aspartate Amino Transf (AST/SGOT) 37 U/L Alanine Aminotransferase (ALT/SGPT) 28 U/L Total Bilirubin 0.4 MG/DL Sodium Level 141 MEQ/L Potassium Level 4.0 MEQ/L Chloride Level 110 MEQ/L Carbon Dioxide Level 18.3 MEQ/L Anion Gap 13 MEQ/L Estimat Glomerular Filtration Rate 48 ML/MIN Total Creatine Kinase 132 U/L 122 U/L Creatine Kinase MB 3.4 NG/ML Troponin I 0.07 NG/ML 0.07 NG/ML B-Type Natriuretic Peptide 78 PG/ML Imaging Last 24 hours Impressions Lung Scan-VQ Nuclear Medicine 02/14/18 0000 Signed Impressions: Service Date/Time: Wednesday, February 14, 2018 11:21 - CONCLUSION: There is a single well-defined segmental mismatched defect involving the left upper lung. This would be high probability for PE. Israel Reid MD Chest X-Ray 02/13/18 1848 Signed Impressions: Service Date/Time: Tuesday, February 13, 2018 19:02 - CONCLUSION: 1. No acute findings. Duane Mendez MD Assessment and Plan Assessment and Plan -------- V/Q high probability for pulmonary embolism fu 2d echo anticoagulation no indication at this time for t-PA no need for cardiac workup needs hypercoag evaluation and appropriate cancer screening BLE venous US r/o extensive clot, if + extensive clot, call me and I can place IVC filter if needed. otherwise, will sign off call with further questions Nicola Wolfe MD Feb 14, 2018 13:28
[2018-02-14 13:53] LABS: AUTOMATED NEUTROPHIL # 2.8 TH/MM3 (1.8-7.7); BASOPHIL % 0.6 % (0.0-2.0); EOSINOPHIL # 0.1 TH/MM3 (0-0.4); EOSINOPHIL % 2.9 % (0.0-4.0); HEMATOCRIT 38.3 % (39.0-51.0); HEMOGLOBIN 13.1 GM/DL (13.0-17.0); LYMPH % 25.7 % (9.0-44.0); LYMPHOCYTE # 1.2 TH/MM3 (1.0-4.8); MEAN CELL VOLUME 95.6 FL (80.0-100.0); MEAN CORPUSCULAR HEMOGLOBIN 32.8 PG (27.0-34.0); MEAN CORPUSCULAR HGB CONC 34.3 % (32.0-36.0); MEAN PLATELET VOLUME 8.2 FL (7.0-11.0); MONO % 11.3 % (0.0-8.0); MONOCYTE # 0.5 TH/MM3 (0-0.9); NEUT % 59.5 % (16.0-70.0); PLATELET COUNT 233 TH/MM3 (150-450); RED CELL DISTRIBUTION WIDTH 13.8 % (11.6-17.2); WHITE BLOOD COUNT 4.6 TH/MM3 (4.0-11.0)
[2018-02-14 14:14] LABS: BICARBONATE 21.2 MEQ/L (21.0-32.0); CREATININE 1.33 MG/DL (0.60-1.30)
[2018-02-14 14:17] LABS: D-DIMER 6.37 MG/L FEU (0.00-0.50); TROPONIN I 0.05 NG/ML (0.02-0.05)
--- NOTE | 2018-02-14 14:49 | HHI.PR ---
Subjective Remarks Denies chest pain/sob sob only on exertion afebrile denies cough Objective Vitals Vital Signs Date Time Temp Pulse Resp B/P (MAP) Pulse Ox O2 Delivery O2 Flow Rate FiO2 02/14/18 13:13 97.9 62 19 168/82 (110) 95 02/13/18 23:07 71 17 128/59 (82) 96 Nasal Cannula 3.00 02/13/18 19:45 22 97 Nasal Cannula 2.50 02/13/18 19:44 88 Room Air 02/13/18 19:44 77 28 143/71 (95) 96 Nasal Cannula 3.00 02/13/18 18:45 99.1 68 24 185/96 (125) 94 I/O 02/13/18 02/13/18 02/13/18 02/14/18 02/14/18 02/14/18 07:00 15:00 23:00 07:00 15:00 23:00 Output Total 400 ml Balance -400 ml Output Urine Total 400 ml Result Diagram: 02/14/18 1328 02/14/18 1328 Imaging Last Impressions Lung Scan-VQ Nuclear Medicine 02/14/18 0000 Signed Impressions: Service Date/Time: Wednesday, February 14, 2018 11:21 - CONCLUSION: There is a single well-defined segmental mismatched defect involving the left upper lung. This would be high probability for PE. Israel Reid MD Chest X-Ray 02/13/18 1848 Signed Impressions: Service Date/Time: Tuesday, February 13, 2018 19:02 - CONCLUSION: 1. No acute findings. Duane Mendez MD Objective Remarks Lying in bed nad Clear lungs BL abdomen soft, nt S1S2 RRR, no MRG no edema in lower extremities, good palpable pedal pulses Medications and IVs Current Medications Medications (Trade) Dose Ordered Sig/Yoan Route Start Time Stop Time Status Last Admin (Heparin Inj) 5,000 units UNSCH PRN IV PUSH 02/14/18 04:15 (Heparin Inj) 2,500 units UNSCH PRN IV PUSH 02/14/18 04:15 Heparin Sodium/ Dextrose 250 ml @ 10 mls/hr TITRATE PRN IV 02/13/18 22:15 02/13/18 23:12 (NS Flush) 2 ml UNSCH PRN IV FLUSH 02/13/18 22:30 (NS Flush) 2 ml BID IV FLUSH 02/14/18 09:00 (Narcan Inj) 0.4 mg UNSCH PRN IV PUSH 02/13/18 22:30 (Ecotrin Ec) 325 mg DAILY PO 02/14/18 09:00 02/14/18 09:38 (Nitrostat Sl) 0.4 mg Q5M PRN SL 02/13/18 22:30 (Lopid) 600 mg BIDAC PO 02/14/18 07:00 02/14/18 09:38 (Prinivil) 5 mg DAILY PO 02/14/18 09:00 02/14/18 09:39 (Flomax) 0.4 mg HS PO 02/14/18 21:00 Lactated Ringer's 1,000 ml @ 84 mls/hr [id number] IV 02/14/18 05:45 A/P Problem List: (1) Dyspnea on exertion ICD Code: R06.09 - Other forms of dyspnea Status: Acute Plan: Patient accession secondary to pulmonary embolism. Chest x-ray without any acute findings. VQ scan shows a single well-defined segmental mismatch defect involving the left upper lung. Hypermobility for PE. Supplemental oxygen to keep oxygen saturation more than 92%. (2) Pulmonary emboli ICD Code: I26.99 - Other pulmonary embolism without acute cor pulmonale Plan: VQ scan with high probability for PE. Heparin drip. Patient hemodynamically stable there is no indication for thrombolytic therapy at this time. Outpatient workup for hypercoagulable syndrome.. The patient is already on heparin and a lot of the tests needed to be obtained will be affected by heparin. Patient can follow-up outpatient with hematology or primary care physician. Check venous Dopplers of bilateral extremities to rule out DVT As per the simplify pulmonary embolism severity index the patient has 0 points therefore low risk. Transition to oral anticoagulant agent possibly Coumadin versus a novel anticoagulant. (3) HTN (hypertension) ICD Code: I10 - Essential (primary) hypertension Plan: Blood pressure seems to be stable. Continue lisinopril and continue to monitor vital signs. (4) Hypertriglyceridemia ICD Code: E78.1 - Pure hyperglyceridemia Plan: Continue gemfibrozil. Follow-up lipid profile as an outpatient. (5) Elevated troponin ICD Code: R74.8 - Abnormal levels of other serum enzymes Status: Acute Plan: EKG showed S1 Q 3 and 2 wears inversion in lead III. Consistent with pulmonary embolism. Cardiology consulted. Troponins trended and peaked at 0.7 and now downtrending. No further cardiac workup indicated since troponin elevation is secondary to pulmonary embolism. Assessment and Plan DVT reflexes: On heparin drip. Problem Qualifiers (1) HTN (hypertension): Qualified Codes: I10 - Essential (primary) hypertension Demetri Alvarado MD Feb 14, 2018 14:49
--- NOTE | 2018-02-14 15:36 | RADRPT ---
EXAM DATE/TIME: 02/14/2018 15:05 [facility] COMPARISON: No previous studies available for comparison. INDICATIONS : Bilateral leg swelling. MEDICAL HISTORY : Hypercholesterolemia. Hypertension. SURGICAL HISTORY : Finger surgery. Alcohol use. ENCOUNTER: Initial ACUITY: 1 week PAIN SCORE: 4/10 LOCATION: Bilateral legs. TECHNIQUE: Venous ultrasound of the left and right leg was performed from the inguinal ligament to the proximal calf. Real-time, color Doppler and spectral tracing, compression and augmentation techniques were us ed. FINDINGS: RIGHT LEG: There is normal compressibility of the deep venous system from the inguinal region to the proximal ca lf. No echogenic clot is seen in the lumen of the common femoral, femoral, popliteal, and posterior tibial veins. There is a normal response of the venous system to proximal and distal augmentation an d respiration. LEFT LEG: There is normal compressibility of the deep venous system from the inguinal region to the proximal ca lf. No echogenic clot is seen in the lumen of the common femoral, femoral, popliteal, and posterior tibial veins. There is a normal response of the venous system to proximal and distal augmentation an d respiration. CONCLUSION: Normal examination. Chuck Romero MD on February 14, 2018 at 15:33 Board Certified Radiologist. This report was verified electronically.
[2018-02-14 18:00] VITALS: BP 162/88; PULSE 69; RESP 20; TEMP 97.8; O2SAT 96
--- NOTE | 2018-02-14 20:07 | EKG ---
Date Performed: 02/14/2018 Time Performed: 08:52:18 PTAGE: 77 years EKG: SINUS BRADYCARDIA RIGHT BUNDLE BRANCH BLOCK ABNORMAL ECG PREVIOUS TRACING : 02/14/2018 02.06 Since the previous tracing, no significant change noted DOCTOR: Luis Daniel Spence Interpretating Date/Time 02/14/2018 20:07:43
--- NOTE | 2018-02-14 20:29 | EKG ---
Date Performed: 02/14/2018 Time Performed: 02:06:04 PTAGE: 77 years EKG: Sinus rhythm RIGHT BUNDLE BRANCH BLOCK ABNORMAL ECG INTERPRETATION BASED ON A DEFAULT AGE OF 40 YEARS PREVIOUS TRACING : 02/13/2018 19.24 Since the previous tracing, no significant change not ed DOCTOR: Luis Daniel Spence Interpretating Date/Time 02/14/2018 20:28:47
--- NOTE | 2018-02-14 20:38 | EKG ---
Date Performed: 02/13/2018 Time Performed: 19:24:07 PTAGE: 77 years EKG: Sinus rhythm RIGHT BUNDLE BRANCH BLOCK ABNORMAL ECG NO PREVIOUS TRACING DOCTOR: Luis Daniel Spence Interpretating Date/Time 02/14/2018 20:37:35
[2018-02-14] MEDS: TAMSULOSIN HCL 0.4 MG CAP PO SCH (22:41)
[2018-02-15] VITALS (9 sets, daily range): BP systolic 97–129; BP diastolic 59–75; PULSE 62–75; RESP 18–20; TEMP 97–97.9; O2SAT 95–97
[2018-02-15] MEDS: HEPARIN-D5W 25,000 U/250 ML 250 ML IV PRN ×2 (00:56→20:57)
[2018-02-15 05:19] LABS: AUTOMATED NEUTROPHIL # 2.7 TH/MM3 (1.8-7.7); BASOPHIL % 0.9 % (0.0-2.0); EOSINOPHIL # 0.2 TH/MM3 (0-0.4); EOSINOPHIL % 4.5 % (0.0-4.0); HEMATOCRIT 38.2 % (39.0-51.0); LYMPH % 23.8 % (9.0-44.0); LYMPHOCYTE # 1.1 TH/MM3 (1.0-4.8); MEAN CELL VOLUME 95.7 FL (80.0-100.0); MEAN CORPUSCULAR HEMOGLOBIN 32.6 PG (27.0-34.0); MEAN PLATELET VOLUME 8.3 FL (7.0-11.0); MONOCYTE # 0.5 TH/MM3 (0-0.9); NEUT % 59.8 % (16.0-70.0); PLATELET COUNT 224 TH/MM3 (150-450); RED CELL DISTRIBUTION WIDTH 13.6 % (11.6-17.2); WHITE BLOOD COUNT 4.5 TH/MM3 (4.0-11.0)
[2018-02-15 06:04] LABS: ALBUMIN 2.9 GM/DL (3.4-5.0); ALKALINE PHOSPHATASE 73 U/L (45-117); ALT (GPT) 21 U/L (12-78); AST (GOT) 32 U/L (15-37); BICARBONATE 20.6 MEQ/L (21.0-32.0); BLOOD UREA NITROGEN 18 MG/DL (7-18); CALCIUM 8.7 MG/DL (8.5-10.1); CHLORIDE 110 MEQ/L (98-107); GLOMERULAR FILTRATION RATE 53 ML/MIN (>89); GLUCOSE,RANDOM 103 MG/DL (74-106); MAGNESIUM 2.1 MG/DL (1.5-2.5); PHOSPHORUS 3.1 MG/DL (2.5-4.9); SODIUM (NA) 140 MEQ/L (136-145); TOTAL BILIRUBIN ADULT 0.7 MG/DL (0.2-1.0); TOTAL PROTEIN 6.7 GM/DL (6.4-8.2)
[2018-02-15] MEDS: GEMFIBROZIL 600 MG TAB PO SCH ×2 (06:06→15:28)
[2018-02-15] MEDS: LACTATED RINGER'S 1000 ML INJ 1,000 ML IV SCH (06:06)
[2018-02-15] MEDS: LISINOPRIL 5 MG TAB PO SCH (09:58)
[2018-02-15] MEDS: ASPIRIN EC 325 MG TABEC PO SCH (09:58)
[2018-02-15] MEDS: SODIUM CHLORIDE 0.9% FLUSH 10 ML FLUSH IV FLUSH SCH ×2 (09:58→20:37)
--- NOTE | 2018-02-15 16:27 | HHI.PR ---
Subjective Remarks Patient states feels slightly better dyspnea is improving. Denies cp. Objective Vitals Vital Signs Date Time Temp Pulse Resp B/P (MAP) Pulse Ox O2 Delivery O2 Flow Rate FiO2 02/15/18 12:00 97.0 69 18 97/62 (74) 97 02/15/18 08:00 97.6 66 20 115/64 (81) 95 02/15/18 04:00 97.9 75 20 113/59 (77) 95 02/15/18 00:00 Nasal Cannula 3.00 02/15/18 00:00 97.0 71 20 129/75 (93) 96 02/14/18 18:00 97.8 69 20 162/88 (112) 96 I/O 02/14/18 02/14/18 02/14/18 02/15/18 02/15/18 02/15/18 07:00 15:00 23:00 07:00 15:00 23:00 Output Total 400 ml Balance -400 ml Output Urine Total 400 ml Result Diagram: 02/15/18 0505 02/15/18 0508 Imaging Last Impressions Lung Scan-VQ Nuclear Medicine 02/14/18 0000 Signed Impressions: Service Date/Time: Wednesday, February 14, 2018 11:21 - CONCLUSION: There is a single well-defined segmental mismatched defect involving the left upper lung. This would be high probability for PE. Israel Reid MD Lower Extremity Ultrasound 02/14/18 0000 Signed Impressions: Service Date/Time: Wednesday, February 14, 2018 15:05 - CONCLUSION: Normal examination. Chuck Romero MD Chest X-Ray 02/13/18 1848 Signed Impressions: Service Date/Time: Tuesday, February 13, 2018 19:02 - CONCLUSION: 1. No acute findings. Duane Mendez MD Objective Remarks Lying in bed nad Clear lungs BL abdomen soft, nt S1S2 RRR, no MRG no edema in lower extremities, good palpable pedal pulses Procedures none Medications and IVs Current Medications Medications (Trade) Dose Ordered Sig/Yoan Route Start Time Stop Time Status Last Admin (Heparin Inj) 5,000 units UNSCH PRN IV PUSH 02/14/18 04:15 (Heparin Inj) 2,500 units UNSCH PRN IV PUSH 02/14/18 04:15 Heparin Sodium/ Dextrose 250 ml @ 10 mls/hr TITRATE PRN IV 02/13/18 22:15 02/15/18 20:57 (NS Flush) 2 ml UNSCH PRN IV FLUSH 02/13/18 22:30 (NS Flush) 2 ml BID IV FLUSH 02/14/18 09:00 02/15/18 09:58 (Narcan Inj) 0.4 mg UNSCH PRN IV PUSH 02/13/18 22:30 (Ecotrin Ec) 325 mg DAILY PO 02/14/18 09:00 02/15/18 09:58 (Nitrostat Sl) 0.4 mg Q5M PRN SL 02/13/18 22:30 (Lopid) 600 mg BIDAC PO 02/14/18 07:00 02/15/18 15:28 (Prinivil) 5 mg DAILY PO 02/14/18 09:00 Future Hold 02/15/18 09:58 (Flomax) 0.4 mg HS PO 02/14/18 21:00 02/15/18 20:37 Lactated Ringer's 1,000 ml @ 100 mls/hr Q10H IV 02/14/18 05:45 02/15/18 06:06 A/P Problem List: (1) Dyspnea on exertion ICD Code: R06.09 - Other forms of dyspnea Status: Acute Plan: Patient accession secondary to pulmonary embolism. Chest x-ray without any acute findings. VQ scan shows a single well-defined segmental mismatch defect involving the left upper lung. Hypermobility for PE. Supplemental oxygen to keep oxygen saturation more than 92%. 02/15 Tittrate O2 to keep o2 sat >92% (2) Pulmonary emboli ICD Code: I26.99 - Other pulmonary embolism without acute cor pulmonale Plan: VQ scan with high probability for PE. Heparin drip. Patient hemodynamically stable there is no indication for thrombolytic therapy at this time. Outpatient workup for hypercoagulable syndrome.. The patient is already on heparin and a lot of the tests needed to be obtained will be affected by heparin. Patient can follow-up outpatient with hematology or primary care physician. Check venous Dopplers of bilateral extremities to rule out DVT As per the simplify pulmonary embolism severity index the patient has 0 points therefore low risk. Transition to oral anticoagulant agent possibly Coumadin versus a novel anticoagulant. 02/[address] chest/abd/pelvis to r/o obvious malignancy, check psa. Patient denies weight loss or other constitutional symptoms. Explained adverse effects of Coumadin and novel anticoagulations. Will transition in am to oral anticoagulation. Continue heparin gtt for now. Venous doppler negative. (3) HTN (hypertension) ICD Code: I10 - Essential (primary) hypertension Plan: Blood pressure seems to be stable. Continue lisinopril and continue to monitor vital signs. (4) Hypertriglyceridemia ICD Code: E78.1 - Pure hyperglyceridemia Plan: Continue gemfibrozil. Follow-up lipid profile as an outpatient. (5) Elevated troponin ICD Code: R74.8 - Abnormal levels of other serum enzymes Status: Acute Plan: EKG showed S1 Q 3 and 2 wears inversion in lead III. Consistent with pulmonary embolism. Cardiology consulted. Troponins trended and peaked at 0.7 and now downtrending. No further cardiac workup indicated since troponin elevation is secondary to pulmonary embolism. (6) RHEA (acute kidney injury) ICD Code: N17.9 - Acute kidney failure, unspecified Plan: Creatinine 1.4 on admission, no previous creatinine for comparison. Creatinine down to 1.3 on IVF. ? CKD Assessment and Plan DVT reflexes: On heparin drip. Problem Qualifiers (1) HTN (hypertension): Qualified Codes: I10 - Essential (primary) hypertension Demetri Alvarado MD Feb 15, 2018 16:27
--- NOTE | 2018-02-15 16:33 | ECHRPT ---
Indication: SHORTNESS OF BREATH CONCLUSIONS Normal left ventricular size. Mild concentric left ventricular hypertrophy. The left ventricular systolic function is normal with an estimated ejection fraction in the range of 55-60%. The right ventricle is mildly dilated. The right ventricular systoilc function is normal. The left atrial size is [id number]-up-[id number] dilated. The right atrial size is [id number]-wqbslzwwms dilated. Trace mitral valve regurgitation. Aortic valve sclerosis is present. There is trace tricuspid valve regurgitation. BP: 128 / 59 HR: Rhythm: Sinus MEASUREMENTS (Male / Female) Normal Values Technical Quality:Fair 2D ECHO LV Diastolic Diameter PLAX 3.7 cm 4.2 - 5.9 / 3.9 - 5.3 cm LV Systolic Diameter PLAX 2.8 cm IVS Diastolic Thickness 1.2 cm 0.6 - 1.0 / 0.6 - 0.9 cm LVPW Diastolic Thickness 1.2 cm 0.6 - 1.0 / 0.6 - 0.9 cm LV Relative Wall Thickness 0.6 RV Internal Dim ED PLAX 4.3 cm LVOT Diameter 1.9 cm Aortic Root Diameter 3.2 cm LA Systolic Diameter LX 4.7 cm 3.0 - 4.0 / 2.7 - 3.8 cm M-MODE AV Cusp Separation MM 1.9 cm DOPPLER AV Peak Velocity 134.0 cm/s AV Peak Gradient 7.2 mmHg AV Mean Gradient 4.0 mmHg AV Velocity Time Integral 29.3 cm LVOT Peak Velocity 117.0 cm/s LVOT Peak Gradient 5.5 mmHg LVOT Velocity Time Integral 28.4 cm AV Area Cont Eq vti 2.7 cm AV Area Cont Eq pk 2.5 cm Mitral E Point Velocity 49.4 cm/s Mitral A Point Velocity 61.2 cm/s Mitral E to A Ratio 0.8 LV E' Lateral Velocity 7.4 cm/s Mitral E to LV E' Lateral Ratio 6.7 LV E' Septal Velocity 4.5 cm/s Mitral E to LV E' Septal Ratio 11.0 TR Peak Velocity 281.0 cm/s TR Peak Gradient 31.6 mmHg Right Atrial Pressure 10.0 mmHg Pulmonary Artery Systolic Pressu 41.6 mmHg Right Ventricular Systolic Press 41.6 mmHg PV Peak Velocity 59.4 cm/s PV Peak Gradient 1.4 mmHg FINDINGS LEFT VENTRICLE Normal left ventricular size. Mild concentric left ventricular hypertrophy. The left ventricular systolic function is normal with an estimated ejection fraction in the range of 55-60%. RIGHT VENTRICLE The right ventricle is mildly dilated. The right ventricular systoilc function is normal. LEFT ATRIUM The left atrial size is [id number]-bb-ssryepdymw dilated. RIGHT ATRIUM The right atrial size is ypvw-fh-lunrtbcpol dilated. ATRIAL SEPTUM The interatrial septum not well visualized. AORTA The aortic root and proximal ascending aorta are normal in size on limited imaging. MITRAL VALVE Trace mitral valve regurgitation. AORTIC VALVE Aortic valve sclerosis is present. TRICUSPID VALVE There is trace tricuspid valve regurgitation. PULMONARY VALVE No pulmonary valve regurgitation or stenosis. VESSELS The inferior vena cava was not well visualized. PERICARDIUM No pericardial effusion. Nicola Wolfe MD, FACC (Electronically Signed) Final Date:15 February 2018 16:32
[2018-02-15] MEDS ORDERED: DIATRIZOATE MEGLUM/DIATRIZOATE SOD 9 ML CUP PO ONE (17:00)
[2018-02-15] MEDS: TAMSULOSIN HCL 0.4 MG CAP PO SCH (20:37)
[2018-02-16] VITALS: BP 143/61; PULSE 82; RESP 19; TEMP 98.7; O2SAT 97
[2018-02-16] MEDS ORDERED: IOHEXOL 350 MG/ML 10 ML VIAL (for RAD DIAG) IVCONTRAST ONE (02:39)
--- NOTE | 2018-02-16 03:03 | RADRPT ---
EXAM DATE/TIME: 02/16/2018 02:20 [facility] COMPARISON: No previous studies available for comparison. INDICATIONS : Short of breath, abnormal ventilation/perfusion study with high probability of pulmonary embolism. ev aluate neoplasm. IV CONTRAST: 100 cc Omnipaque 350 (iohexol) IV ; Cumulative dose for multiple exams. RADIATION DOSE: 20.08 CTDIvol (mGy) ; Combined studies - Thorax/Abdomen/Pelvis MEDICAL HISTORY : Hypertension. SURGICAL HISTORY : None. ENCOUNTER: Initial ACUITY: 1 day PAIN SCALE: 1/10 LOCATION: chest TECHNIQUE: Volumetric scanning of the chest was performed. Using automated exposure control and adjustment of t he mA and/or kV according to patient size, radiation dose was kept as low as reasonably achievable to obtain optimal diagnostic quality images. DICOM format image data is available electronically for review and comparison. Follow-up recommendations for detected pulmonary nodules are based at a minimum on nodule size and pa tient risk factors according to Fleischner Society Guidelines. FINDINGS: LUNGS: There is no consolidation or pneumothorax. No concerning pulmonary nodule is visualized. PLEURA: There is no pleural thickening or pleural effusion. MEDIASTINUM: The heart size is at the upper limits of normal with no pericardial effusion. There are multiple fill ing defects in the right distal pulmonary artery extending into the upper lobe and right lower lobe p ulmonary arteries. There are smaller feet filling defects in the left lower lobe pulmonary arteries a s well. There is no mediastinal or hilar lymphadenopathy. AXILLAE: Within normal limits. No lymphadenopathy. SKELETAL: Within normal limits for patient age. MISCELLANEOUS: The visualized upper abdominal organs demonstrate no acute abnormality. CONCLUSION: 1. Bilateral pulmonary emboli right greater than left. 2. The lungs are clear with no evidence of neoplasm. Ignacio Almaguer MD on February 16, 2018 at 2:57 Board Certified Radiologist. This report was verified electronically.
--- NOTE | 2018-02-16 03:05 | RADRPT ---
EXAM DATE/TIME: 02/16/2018 02:20 [facility] COMPARISON: No previous studies available for comparison. INDICATIONS : Abdomen pain. Shortness of breath and pulmonary emboli. Evaluate neoplasm. IV CONTRAST: 100 cc Omnipaque 350 (iohexol) IV ; Cumulative dose for multiple exams. ORAL CONTRAST: Prescribed oral contrast ingested. RADIATION DOSE: 20.08 CTDIvol (mGy) ; Combined studies - Thorax/Abdomen/Pelvis MEDICAL HISTORY : Hypertension. SURGICAL HISTORY : None. ENCOUNTER: Initial ACUITY: 1 day PAIN SCALE: 1/10 LOCATION: abdomen TECHNIQUE: Volumetric scanning of the abdomen and pelvis was performed. Using automated exposure control and ad justment of the mA and/or kV according to patient size, radiation dose was kept as low as reasonably achievable to obtain optimal diagnostic quality images. DICOM format image data is available electro nically for review and comparison. FINDINGS: LOWER LUNGS: The visualized lower lungs are clear. LIVER: Homogeneous density without lesion. There is no dilation of the biliary tree. No calcified gallston es. SPLEEN: Normal size without lesion. PANCREAS: Within normal limits. KIDNEYS: Normal in size and shape. There is no mass, stone or hydronephrosis. ADRENAL GLANDS: Within normal limits. VASCULAR: There is no aortic aneurysm. BOWEL/MESENTERY: The stomach, small bowel, and colon demonstrate no acute abnormality. There is no free intraperitone al air or fluid. ABDOMINAL WALL: Within normal limits. RETROPERITONEUM: There is no lymphadenopathy. BLADDER: No wall thickening or mass. REPRODUCTIVE: Within normal limits. INGUINAL: There is no lymphadenopathy or hernia. MUSCULOSKELETAL: Osteopenia, degenerative change and scoliosis are present. CONCLUSION: 1. No evidence of primary tumor or metastatic disease. Ignacio Almaguer MD on February 16, 2018 at 3:01 Board Certified Radiologist. This report was verified electronically.
[2018-02-16] MEDS: LACTATED RINGER'S 1000 ML INJ 1,000 ML IV SCH ×2 (03:19→11:36)
[2018-02-16 04:00] VITALS: BP 126/71; PULSE 63; RESP 15; TEMP 96.9; O2SAT 96
[2018-02-16 05:08] LABS: HEMATOCRIT 37.8 % (39.0-51.0); MEAN CELL VOLUME 95.6 FL (80.0-100.0); MEAN CORPUSCULAR HEMOGLOBIN 32.9 PG (27.0-34.0); MEAN CORPUSCULAR HGB CONC 34.4 % (32.0-36.0); MEAN PLATELET VOLUME 8.9 FL (7.0-11.0); PLATELET COUNT 235 TH/MM3 (150-450); RED BLOOD COUNT 3.95 MIL/MM3 (4.50-5.90); RED CELL DISTRIBUTION WIDTH 13.7 % (11.6-17.2); WHITE BLOOD COUNT 5.9 TH/MM3 (4.0-11.0)
[2018-02-16] MEDS: GEMFIBROZIL 600 MG TAB PO SCH (06:18)
[2018-02-16 08:00] VITALS: BP 120/57; PULSE 66; RESP 18; TEMP 98.6; O2SAT 95
[2018-02-16] MEDS: SODIUM CHLORIDE 0.9% FLUSH 10 ML FLUSH IV FLUSH SCH (09:00)
[2018-02-16] MEDS: ASPIRIN EC 325 MG TABEC PO SCH (09:12)
[2018-02-16 10:44] VITALS: O2SAT 94
[2018-02-16 11:00] VITALS: BP 117/64; PULSE 62; RESP 18; TEMP 96.4; O2SAT 96
[2018-02-16] MEDS ORDERED: APIXABAN 5 MG TABLET PO SCH (12:00)
--- NOTE | 2018-02-16 13:47 | HHI.PR ---
Subjective Remarks Deferred entry, the patient was seen earlier at 10:40 AM. The patient denies any chest pain or shortness of breath. States he has been ambulating without being dyspneic. Patient denies fevers or chills. Objective Vitals Vital Signs Date Time Temp Pulse Resp B/P (MAP) Pulse Ox O2 Delivery O2 Flow Rate FiO2 02/16/18 11:00 96.4 62 18 117/64 (81) 96 02/16/18 10:44 94 Nasal Cannula 1.00 02/16/18 09:31 95 Nasal Cannula 2.00 02/16/18 08:00 98.6 66 18 120/57 (78) 95 02/16/18 04:00 96.9 63 15 126/71 (89) 96 02/16/18 00:00 98.7 82 19 143/61 (88) 97 02/16/18 00:00 Nasal Cannula 2.00 02/15/18 20:33 97.8 69 20 124/70 (88) 97 02/15/18 20:26 96 Nasal Cannula 3.00 02/15/18 20:00 Nasal Cannula 2.00 02/15/18 17:23 96 Nasal Cannula 3.00 02/15/18 16:00 97.5 62 18 114/65 (81) 96 I/O 02/15/18 02/15/18 02/15/18 02/16/18 02/16/18 02/16/18 07:00 15:00 23:00 07:00 15:00 23:00 Intake Total 730 ml 869 ml 533.8 ml Output Total 800 ml 900 ml Balance -70 ml -31 ml 533.8 ml Intake Oral 480 ml 450 ml IV Total 250 ml 419 ml 533.8 ml Output Urine Total 800 ml 900 ml # Bowel Movements 0 Result Diagram: 02/16/18 0350 02/15/18 0508 Imaging Last Impressions Chest CT 02/15/18 0000 Signed Impressions: Service Date/Time: Friday, February 16, 2018 02:20 - CONCLUSION: 1. Bilateral pulmonary emboli right greater than left. 2. The lungs are clear with no evidence of neoplasm. Ignacio Almaguer MD Abdomen/Pelvis CT 02/15/18 0000 Signed Impressions: Service Date/Time: Friday, February 16, 2018 02:20 - CONCLUSION: 1. No evidence of primary tumor or metastatic disease. Ignacio Almaguer MD Lung Scan-VQ Nuclear Medicine 02/14/18 0000 Signed Impressions: Service Date/Time: Wednesday, February 14, 2018 11:21 - CONCLUSION: There is a single well-defined segmental mismatched defect involving the left upper lung. This would be high probability for PE. Israel Reid MD Lower Extremity Ultrasound 02/14/18 0000 Signed Impressions: Service Date/Time: Wednesday, February 14, 2018 15:05 - CONCLUSION: Normal examination. Chuck Romero MD Chest X-Ray 02/13/18 184 Signed Impressions: Service Date/Time: Tuesday, February 13, 2018 19:02 - CONCLUSION: 1. No acute findings. Duane Mendez MD Objective Remarks Lying in bed nad Clear lungs BL abdomen soft, nt S1S2 RRR, no MRG no edema in lower extremities, good palpable pedal pulses Procedures none Medications and IVs Current Medications Medications (Trade) Dose Ordered Sig/Yoan Route Start Time Stop Time Status Last Admin (NS Flush) 2 ml UNSCH PRN IV FLUSH 02/13/18 22:30 (NS Flush) 2 ml BID IV FLUSH 02/14/18 09:00 02/15/18 09:58 (Narcan Inj) 0.4 mg UNSCH PRN IV PUSH 02/13/18 22:30 (Ecotrin Ec) 325 mg DAILY PO 02/14/18 09:00 02/16/18 09:12 (Nitrostat Sl) 0.4 mg Q5M PRN SL 02/13/18 22:30 (Lopid) 600 mg BIDAC PO 02/14/18 07:00 02/16/18 06:18 (Prinivil) 5 mg DAILY PO 02/14/18 09:00 Future Hold 02/15/18 09:58 (Flomax) 0.4 mg HS PO 02/14/18 21:00 02/15/18 20:37 Lactated Ringer's 1,000 ml @ 100 mls/hr Q10H IV 02/14/18 05:45 02/16/18 11:36 (Eliquis) 10 mg BID PO 02/16/18 12:00 02/16/18 11:35 A/P Problem List: (1) Dyspnea on exertion ICD Code: R06.09 - Other forms of dyspnea Status: Acute Plan: Patient accession secondary to pulmonary embolism. Chest x-ray without any acute findings. VQ scan shows a single well-defined segmental mismatch defect involving the left upper lung. Hypermobility for PE. Supplemental oxygen to keep oxygen saturation more than 92%. 02/15 Tittrate O2 to keep o2 sat >92% (2) Pulmonary emboli ICD Code: I26.99 - Other pulmonary embolism without acute cor pulmonale Plan: VQ scan with high probability for PE. Heparin drip. Patient hemodynamically stable there is no indication for thrombolytic therapy at this time. Outpatient workup for hypercoagulable syndrome.. The patient is already on heparin and a lot of the tests needed to be obtained will be affected by heparin. Patient can follow-up outpatient with hematology or primary care physician. Check venous Dopplers of bilateral extremities to rule out DVT As per the simplify pulmonary embolism severity index the patient has 0 points therefore low risk. Transition to oral anticoagulant agent possibly Coumadin versus a novel anticoagulant. 02/[address] chest/abd/pelvis to r/o obvious malignancy, check psa. Patient denies weight loss or other constitutional symptoms. Explained adverse effects of Coumadin and novel anticoagulations. Will transition in am to oral anticoagulation. Continue heparin gtt for now. Venous doppler negative. 02/16 DCA of a heparin drip and start the patient on Eliquis 10 mg p.o. twice daily 10 days and then switch to 5 mill grams p.o. twice daily. We will check with her homework test to see if the patient needs home O2. CT chest/abdomen/pelvis negative for primary or metastatic tumor. (3) HTN (hypertension) ICD Code: I10 - Essential (primary) hypertension Plan: Blood pressure seems to be stable. Lisinopril held due to increased creatinine and borderline BP. 02/16 blood pressure is stable off antihypertensive medication. Continue to hold. (4) Hypertriglyceridemia ICD Code: E78.1 - Pure hyperglyceridemia Plan: Continue gemfibrozil. Follow-up lipid profile as an outpatient. (5) Elevated troponin ICD Code: R74.8 - Abnormal levels of other serum enzymes Status: Acute Plan: EKG showed S1 Q 3 and 2 wears inversion in lead III. Consistent with pulmonary embolism. Cardiology consulted. Troponins trended and peaked at 0.7 and now downtrending. No further cardiac workup indicated since troponin elevation is secondary to pulmonary embolism. (6) RHEA (acute kidney injury) ICD Code: N17.9 - Acute kidney failure, unspecified Plan: Creatinine 1.4 on admission, no previous creatinine for comparison. Creatinine down to 1.3 on IVF. ? CKD Assessment and Plan DVT reflexes: On heparin drip. Discharge Planning Possible discharge later today. Pending respiratory walk test. Problem Qualifiers (1) HTN (hypertension): Qualified Codes: I10 - Essential (primary) hypertension Demetri Alvarado MD Feb 16, 2018 13:47
[2018-02-16] MEDS ORDERED: APIX5TAB PO (13:56)
[2018-02-16] MEDS ORDERED: ASPI325T33 PO (13:56)
--- NOTE | 2018-02-16 13:59 | HHI.DCPOC ---
Discharge Care Plan Diagnosis: (1) Dyspnea on exertion (2) HTN (hypertension) (3) Pulmonary emboli (4) Hypertriglyceridemia (5) Elevated troponin (6) RHEA (acute kidney injury) Goals to Promote Your Health * To prevent worsening of your condition and complications * To maintain your health at the optimal level Directions to Meet Your Goals Take your medications as prescribed Follow your dietary instruction Follow activity as directed Keep your appointments as scheduled Take your immunizations and boosters as scheduled If your symptoms worsen call your PCP, if no PCP go to Urgent Care Center or Emergency Room Smoking is Dangerous to Your Health. Avoid second hand smoke Call the 24-hour hour crisis hotline for domestic abuse at Demetri Alvarado MD Feb 16, 2018 13:59
--- NOTE | 2018-02-16 14:09 | HHI.DS ---
Discharge Summary Admission Date Feb 13, 2018 at 22:06 Discharge Date: Feb 16, 2018 Admitting Diagnosis NSTEMI, positive troponin (1) Dyspnea on exertion ICD Code: R06.09 - Other forms of dyspnea Diagnosis: Principal Status: Resolved (2) Pulmonary emboli ICD Code: I26.99 - Other pulmonary embolism without acute cor pulmonale Diagnosis: Principal Status: Acute (3) HTN (hypertension) ICD Code: I10 - Essential (primary) hypertension Diagnosis: Principal Status: Chronic (4) Hypertriglyceridemia ICD Code: E78.1 - Pure hyperglyceridemia Diagnosis: Secondary Status: Chronic (5) Elevated troponin ICD Code: R74.8 - Abnormal levels of other serum enzymes Diagnosis: Principal Status: Acute (6) RHEA (acute kidney injury) ICD Code: N17.9 - Acute kidney failure, unspecified Diagnosis: Principal Status: Acute Procedures none Brief History - From Admission Mr. Whitaker is a 77-year-old male with a past medical history of hypertension and hypertriglyceridemia as well as a family history of heart disease who presented to the emergency room complaining of 2 weeks of progressively worsening shortness of breath with exertion. The patient was found to have troponin elevation in the emergency room and symptoms were thought to be a possible anginal equivalent. The patient has been admitted to the hospitalist service with cardiology consultation. The patient is seen in the ER overflow area. He reports having no stamina, fatigue, and shortness of breath that has worsened over the past 2 weeks. He says over the past 3 days, the shortness of breath has gotten so bad that he is unable to ambulate further than 20 feet without becoming short of breath. He states that he has not had any accompanying chest pain, palpitations, nausea, or diaphoresis. He denies any recent cough or fevers. He has never smoked. CBC/BMP: 02/16/18 0350 02/15/18 0508 Significant Findings Laboratory Tests Test 02/13/18 19:20 02/14/18 02:05 02/14/18 13:28 02/14/18 21:04 Red Blood Count 4.49 MIL/MM3 (4.50-5.90) 4.00 MIL/MM3 (4.50-5.90) Monocytes (%) (Auto) 10.0 % (0.0-8.0) 11.3 % (0.0-8.0) Prothrombin Time 12.2 SEC (9.8-11.6) Blood Urea Nitrogen 21 MG/DL (7-18) 19 MG/DL (7-18) Creatinine 1.43 MG/DL (0.60-1.30) 1.33 MG/DL (0.60-1.30) Chloride Level 110 MEQ/L (98-107) 109 MEQ/L (98-107) Carbon Dioxide Level 18.3 MEQ/L (21.0-32.0) Estimat Glomerular Filtration Rate 48 ML/MIN (>89) 52 ML/MIN (>89) Troponin I 0.07 NG/ML (0.02-0.05) 0.07 NG/ML (0.02-0.05) Hematocrit 38.3 % (39.0-51.0) Activated Partial Thromboplast Time 52.0 SEC (24.3-30.1) 36.6 SEC (24.3-30.1) D-Dimer Quantitative (PE/DVT) 6.37 MG/L FEU (0.00-0.50) Random Glucose 122 MG/DL (74-106) Test 02/15/18 05:05 02/15/18 05:08 02/15/18 12:33 02/15/18 22:37 Red Blood Count 4.00 MIL/MM3 (4.50-5.90) Hematocrit 38.2 % (39.0-51.0) Monocytes (%) (Auto) 11.0 % (0.0-8.0) Eosinophils (%) (Auto) 4.5 % (0.0-4.0) Activated Partial Thromboplast Time 38.4 SEC (24.3-30.1) 43.9 SEC (24.3-30.1) 45.3 SEC (24.3-30.1) Albumin 2.9 GM/DL (3.4-5.0) Chloride Level 110 MEQ/L (98-107) Carbon Dioxide Level 20.6 MEQ/L (21.0-32.0) Estimat Glomerular Filtration Rate 53 ML/MIN (>89) Test 3/23/18 03:50 Red Blood Count 3.95 MIL/MM3 (4.50-5.90) Hematocrit 37.8 % (39.0-51.0) Activated Partial Thromboplast Time 39.0 SEC (24.3-30.1) Imaging Last Impressions Chest CT 02/15/18 0000 Signed Impressions: Service Date/Time: Friday, February 16, 2018 02:20 - CONCLUSION: 1. Bilateral pulmonary emboli right greater than left. 2. The lungs are clear with no evidence of neoplasm. Ignacio Almaguer MD Abdomen/Pelvis CT 02/15/18 0000 Signed Impressions: Service Date/Time: Friday, February 16, 2018 02:20 - CONCLUSION: 1. No evidence of primary tumor or metastatic disease. Ignacio Almaguer MD Lung Scan-VQ Nuclear Medicine 02/14/18 0000 Signed Impressions: Service Date/Time: Wednesday, February 14, 2018 11:21 - CONCLUSION: There is a single well-defined segmental mismatched defect involving the left upper lung. This would be high probability for PE. Israel Reid MD Lower Extremity Ultrasound 02/14/18 0000 Signed Impressions: Service Date/Time: Wednesday, February 14, 2018 15:05 - CONCLUSION: Normal examination. Chuck Romero MD Chest X-Ray 02/13/18 1848 Signed Impressions: Service Date/Time: Tuesday, February 13, 2018 19:02 - CONCLUSION: 1. No acute findings. Duane Mendez MD PE at Discharge Lying in bed nad Clear lungs BL abdomen soft, nt S1S2 RRR, no MRG no edema in lower extremities, good palpable pedal pulses Pt update on day of discharge Patient denies chest pain or shortness of breath. Patient was able to get up and ambulate. Hospital Course Patient was admitted to the medical floor, cardiology consulted, VQ scan was hyperventilated for PE so patient was started on heparin drip. Patient was hemodynamically stable therefore there was no indication for thrombolytic therapy at the time. The patient was placed on oxygen to keep an oxygen saturation more than 90%, physical therapy evaluated the patient who in the patient able and fit to go home. CT chest showed bilateral PE and CT abdomen and pelvis did not show any primary or metastatic tumor. Venous Doppler of the lower extremities did not show any DVT. PSA was ordered prior to discharge. On day 3 of his debilitation the patient heparin drip was discontinued and the patient was started on Eliquis. The patient and his family was counseled extensively on adverse effects, the main been bleeding. He was also advised to go to the nearest ED if he felt dizzy, or observed blood or dark stools. The patient's lisinopril which the patient took for hypertension was held due to increased creatinine and borderline low blood pressure. The patient was discharged with a lisinopril and hold. Reinitiation of lisinopril could be assessed later by his primary care physician. The patient also was instructed to follow-up with hematology for hypercoagulable workup and follow-up with anticoagulation. Patient was also noticed to have an elevated creatinine which the patient states he was told in the past. We did not have any previous labs to compare creatinine with. Creatinine is slightly improved from 1.4-1.3. The patient was instructed to follow-up with his primary care physician. Respiratory homework test ordered prior to discharge. Pt Condition on Discharge: Stable Discharge Disposition: Discharge Home Discharge Time: > 30 minutes Discharge Instructions DIET: Follow Instructions for: Heart Healthy Diet Activities you can perform: Regular-No Restrictions Activities to Avoid: Prolonged Standing, Strenuous Activity, Sexual Activity Demetri Alvarado MD Feb 16, 2018 14:09
== END 2018-02-16 18:30 | disposition home or self-care (01) | DRG 176 ==
LOC: NED 18:41 → NEDA 22:06 → NEDH 02-14 05:38 → HOCA 02-14 15:45
PROVIDERS: ADMIT Hospitalist; ATTEND Hospitalist
DX: I26.99 Other pulmonary embolism without acute cor pulmonale (principal); N17.9 Acute kidney failure, unspecified; I45.10 Unspecified right bundle-branch block; E86.0 Dehydration; I12.9 Hypertensive chronic kidney disease with stage 1 through stage 4 chronic kidney disease, or unspecified chronic kidney disease; E78.1 Pure hyperglyceridemia; N18.9 Chronic kidney disease, unspecified; E78.00 Pure hypercholesterolemia, unspecified; Z82.49 Family history of ischemic heart disease and other diseases of the circulatory system
CPT/HCPCS: 71046; 71260; 74177; 78582; 80048; 80053; 82550; 82552; 83735; 83880; 84100; 84484; 85025; 85027; 85379; 85610; 85730; 93005; 93306; 93970; 94618; A9540; A9567; J1644; J7120; Q9963; Q9967